=== PATIENT | male | born 1995 | race African-American/Black ===

== ENCOUNTER 2022-06-25 20:16 | Emergency (ER) | payer SELFPAY ==
[2022-06-25 20:23] VITALS: BP 133/81; PULSE 86; RESP 19; TEMP 97.8; BMI 23.3
[2022-06-25] MEDS ORDERED: ACETAMINOPHEN 500 MG TABLET (FP) PO ONE (22:07)
[2022-06-25] MEDS ORDERED: ACETAMINOPHEN 500 MG TABLET (FP) ONE (22:11)
[2022-06-25] MEDS ORDERED: KETOROLAC TROMETHAMINE 30 MG/1 ML VIAL ONE (23:13)
[2022-06-25] MEDS ORDERED: KETOROLAC TROMETHAMINE 30 MG/1 ML VIAL IM ONE (23:18)
== END 2022-06-25 23:19 | disposition home or self-care (01) ==
LOC: JERFT 20:16
PROC: 3E0233Z Introduction of Anti-inflammatory into Muscle, Percutaneous Approach (ICD-10-PCS; principal; 2022-06-25)
DX: R22.0 Localized swelling, mass and lump, head (principal); Y04.0XXA Assault by unarmed brawl or fight, initial encounter
CPT/HCPCS: 70450-TC; 70486-TC; 99284-25